=== PATIENT | female | born 1950 | race Caucasian/White ===

== ENCOUNTER → 2016-11-12 | Outpatient (CLI) | payer MEDICARE, BC ==
[~2016-11-12] MED LIST: ALDACTONE 25MG25 M1 PO; APRESOLINE 10MG10 MG PO; APRESOLINE50 MG PO; ASPIRIN E.C. 8181 MG PO; BENADRYL25 M2 PO; CELEXA40 MG PO; COLACE 100100 MG/CAP PO; HCTZ 25MG TAB25 MG PO; LIPITOR 10MG10 MG PO; LIPITOR 40MG TA40 MG PO; LOVENOX 4040 MG/0.4 SQ; NEURONTIN100 MG/CAP PO; NORVASC 10MG10 MG PO; PLAVIX 75MG TAB75 MG PO; PRINIVIL10 MG PO; PROTONIX 40MG T40 MG PO; TOPROL XL 50MG50 MG PO; TOPROL XL100 MG PO; VITAMIN D1000 IU PO; ZESTRIL 20MG TA20 MG PO
== END ==
LOC: MC.RAD 12:55
DX: Z12.31 Encounter for screening mammogram for malignant neoplasm of breast (principal)

== ENCOUNTER 2017-03-17 01:51 | Inpatient (IN) | payer MEDICARE, BC ==
[~2017-03-17] VITALS: Ht 160 cm; Wt 84.1 kg
[~2017-03-17 01:51] MED LIST changes: +VITAMIN D 1001000 IU PO; -VITAMIN D1000 IU PO
[2017-03-17 02:55] LABS: BASO # 0.1 (0.0-0.2); BASO % 0.5 % (0.0-2.0); EOS # 0.2 (0.0-0.7); EOS % 0.9 % (0-4.0); GRAN # 13.4 (1.4-6.5); GRAN % 75.4 % (42.2-75.2); HEMATOCRIT 40.8 % (37.0-47.0); HEMOGLOBIN 13.5 g/dl (12.5-16.0); LYMPH # 2.8 (1.2-3.4); LYMPH % 15.8 % (20.0-51.0); MEAN CELL VOLUME 91 fl (80.0-100.0); MEAN CORPUSCULAR HEMOGLOBIN 30 pg (27.0-31.0); MEAN CORPUSCULAR HGB CONC 33 g/dl (33.0-37.0); MEAN PLATELET VOLUME 9.9 fl (7.4-10.4); MONO # 1.2 (0.1-0.6); MONO % 6.8 % (1.7-9.3); PLATELET COUNT 334 K/mm3 (130-400); RED BLOOD COUNT 4.47 M/mm3 (4.10-5.30); REDCELL DISTRIBUTION WIDTH-CV 13.1 % (11.5-14.5); WHITE BLOOD COUNT 17.8 K/mm3 (4.8-10.8)
[2017-03-17 03:00] LABS: PROTHROMBIN TIME 11.4 SECONDS (9.7-12.8)
[2017-03-17 03:04] LABS: ADJUSTED CALCIUM 9.1 mg/dL (8.4-10.2); ALBUMIN 4.3 gm/dL (3.5-5.0); BILIRUBIN,TOTAL 0.5 mg/dL (0.0-1.0); CALCIUM 9.3 mg/dL (8.4-10.2); CREATININE, serum 0.96 mg/dL (0.52-1.25); POTASSIUM 4.1 mmol/L (3.4-5.0); TOTAL PROTEIN 8.1 gm/dL (6.4-8.2)
[2017-03-17 03:16] LABS: TROPONIN-I 0.015 ng/mL (0.000-0.034)
[2017-03-17 04:31] LABS: PH 5 (5-8); SQUAMOUS EPITHELIAL 0-2 /hpf; URINE APPEARANCE Clear; URINE BACTERIA None Seen /hpf; URINE BILIRUBIN Negative (NEGATIVE); URINE BLOOD Negative (NEGATIVE); URINE COLOR Straw; URINE GLUCOSE Negative (NEGATIVE); URINE KETONE Negative (NEGATIVE); URINE RBC 0-2 /hpf; URINE UROBILINOGEN Negative (NEGATIVE); URINE WBC 0-2 /hpf
[2017-03-17 08:30] VITALS: BP 133/61; PULSE 86; TEMP 98
[2017-03-17 13:03] VITALS: BP 135/67; PULSE 78; TEMP 97.7
[2017-03-17 16:08] VITALS: BP 128/68; PULSE 82; TEMP 98.6
[2017-03-17 20:56] VITALS: BP 135/55; PULSE 77; TEMP 98.7
[2017-03-17 22:25] LABS: BASO # 0.1 (0.0-0.2); BASO % 0.7 % (0.0-2.0); EOS # 0.4 (0.0-0.7); EOS % 3.5 % (0-4.0); GRAN # 5.8 (1.4-6.5); GRAN % 51.5 % (42.2-75.2); LYMPH # 4.1 (1.2-3.4); LYMPH % 36.8 % (20.0-51.0); MEAN CELL VOLUME 93 fl (80.0-100.0); MEAN CORPUSCULAR HGB CONC 33 g/dl (33.0-37.0); MEAN PLATELET VOLUME 10.5 fl (7.4-10.4); MONO # 0.8 (0.1-0.6); MONO % 7.1 % (1.7-9.3); PLATELET COUNT 307 K/mm3 (130-400); RED BLOOD COUNT 3.77 M/mm3 (4.10-5.30); REDCELL DISTRIBUTION WIDTH-CV 13.3 % (11.5-14.5); WHITE BLOOD COUNT 11.2 K/mm3 (4.8-10.8)
[2017-03-17 22:27] LABS: HEMOGLOBIN 11.4 g/dl (12.5-16.0); MEAN CORPUSCULAR HEMOGLOBIN 30 pg (27.0-31.0)
[2017-03-17 22:34] VITALS: BP 148/61; PULSE 77; TEMP 98.4
[2017-03-18 00:12] LABS: ERYTHROCYTE SEDIMENTATION RATE 19 mm/hr (0-30)
[2017-03-18 02:21] VITALS: BP 132/61; PULSE 74; TEMP 97.7
[2017-03-18 08:17] VITALS: BP 151/83; PULSE 90; TEMP 98
[2017-03-18 09:06] LABS: BASO # 0.1 (0.0-0.2); BASO % 0.9 % (0.0-2.0); EOS # 0.4 (0.0-0.7); EOS % 3.7 % (0-4.0); GRAN # 6.3 (1.4-6.5); GRAN % 58.6 % (42.2-75.2); HEMATOCRIT 41.3 % (37.0-47.0); HEMOGLOBIN 13.3 g/dl (12.5-16.0); LYMPH # 3.3 (1.2-3.4); LYMPH % 31.1 % (20.0-51.0); MEAN CELL VOLUME 95 fl (80.0-100.0); MEAN CORPUSCULAR HEMOGLOBIN 30 pg (27.0-31.0); MEAN CORPUSCULAR HGB CONC 32 g/dl (33.0-37.0); MEAN PLATELET VOLUME 9.8 fl (7.4-10.4); MONO # 0.6 (0.1-0.6); MONO % 5.4 % (1.7-9.3); PLATELET COUNT 324 K/mm3 (130-400); RED BLOOD COUNT 4.37 M/mm3 (4.10-5.30); REDCELL DISTRIBUTION WIDTH-CV 13.2 % (11.5-14.5); WHITE BLOOD COUNT 10.7 K/mm3 (4.8-10.8)
[2017-03-18 09:21] LABS: C-REACTIVE PROTEIN 0.6 mg/dL (0.0-0.9); CREATININE, serum 0.86 mg/dL (0.52-1.25); POTASSIUM 3.8 mmol/L (3.4-5.0)
[2017-03-18 11:23] VITALS: BP 128/65; PULSE 89; TEMP 98.3
== END 2017-03-18 13:06 | disposition home health service (06) | DRG 57 ==
LOC: COL.ER 01:51 → MEDICAL 05:42
PROVIDERS: Emergency Medicine; Internal Medicine; Nurse Practitioner Family
DX: I69.354 Hemiplegia and hemiparesis following cerebral infarction affecting left non-dominant side (principal); I69.392 Facial weakness following cerebral infarction; I10 Essential (primary) hypertension; R00.0 Tachycardia, unspecified; H53.462 Homonymous bilateral field defects, left side; G47.33 Obstructive sleep apnea (adult) (pediatric)
CPT/HCPCS: 99223-AI; 99239; A9585; J1650; J2405; J2550; J7030; J7040

== ENCOUNTER 2020-04-20 11:09 | Inpatient (IN) | payer MEDICARE, BC ==
[~2020-04-20] VITALS: Ht 160 cm; Wt 81.2 kg
[~2020-04-20 11:09] MED LIST changes: +ANTI-DIARRHEAL2 MG PO; +CEPHALEXIN500 M1 PO; +CIPRO 500MG TA500 MG PO; +FOSAMAX 70MG TA70 MG PO; +LIORESAL 1010 MG/TAB PO; +NEURONTIN300 MG/CAP PO; +PRINIVIL40 MG PO; +PROBIOTIC ACID1 EAC3 PO; +WELLBUTRIN XL150 MG PO; +ZOFRAN ODT4 MG PO
[2020-04-20 12:00] LABS: ALANINE AMINOTRANSFERASE 20 U/L (4-34); ALBUMIN 4.7 gm/dL (3.5-5.0); ALKALINE PHOSPHATASE 96 U/L (50-136); ANION GAP 13 mmol/L (7-16); AST,SGOT 32 U/L (15-37); BILIRUBIN,TOTAL 1.1 mg/dL (0.0-1.0); BLOOD UREA NITROGEN 14 mg/dL (7-17); C-REACTIVE PROTEIN 3.1 mg/dL (0.0-0.9); CALCIUM 9.8 mg/dL (8.4-10.2); CARBON DIOXIDE 26 mmol/L (22-30); CHLORIDE 99 mmol/L (98-107); CREATININE, serum 0.91 (0.52-1.25); GLUCOSE 164 mg/dL (74-106); LIPASE 73 U/L (23-300); POTASSIUM 4.2 mmol/L (3.4-5.0); SODIUM 138 mmol/L (137-145); TOTAL PROTEIN 9.1 gm/dL (6.4-8.2)
[2020-04-20 12:04] LABS: BASO # 0.1 (0.0-0.2); BASO % 0.4 % (0.0-2.0); GRAN % 84.7 % (42.2-75.2); HEMATOCRIT 44.6 % (37.0-47.0); HEMOGLOBIN 14.6 g/dl (12.5-16.0); LYMPH # 1.9 (1.2-3.4); LYMPH % 8.6 % (20.0-51.0); MEAN CELL VOLUME 92 fl (80.0-100.0); MEAN CORPUSCULAR HEMOGLOBIN 30 pg (27.0-31.0); MEAN CORPUSCULAR HGB CONC 33 g/dl (33.0-37.0); MEAN PLATELET VOLUME 9.8 fl (7.4-10.4); MONO # 1.3 (0.1-0.6); MONO % 5.8 % (1.7-9.3); PLATELET COUNT 422 K/mm3 (130-400); RED BLOOD COUNT 4.84 M/mm3 (4.10-5.30)
[2020-04-20 12:18] LABS: TROPONIN-I < 0.012 ng/mL (0.000-0.035)
[2020-04-20 12:31] LABS: COLLECTION METHOD CATHETER
[2020-04-20 13:00] LABS: MUCOUS Present /lpf; PH 7 (5-8); SQUAMOUS EPITHELIAL 0-2 /hpf; URINE APPEARANCE Clear; URINE BACTERIA Occasional /hpf; URINE BILIRUBIN Negative (NEGATIVE); URINE BLOOD 2+ (NEGATIVE); URINE COLOR Yellow; URINE GLUCOSE Negative (NEGATIVE); URINE KETONE Negative (NEGATIVE); URINE LEUKOCYTE ESTERASE 1+ (NEGATIVE); URINE NITRATE Positive (NEGATIVE); URINE PROTEIN(semi-quant) Negative (NEGATIVE); URINE RBC 0-2 /hpf; URINE UROBILINOGEN Negative (NEGATIVE)
[2020-04-20 17:55] VITALS: BP 90/54; PULSE 83; TEMP 99
[2020-04-20 19:06] VITALS: BP 100/63; PULSE 83; TEMP 98.1
--- NOTE | 2020-04-20 19:56 | NUR ---
patient alert and oriented. unable to ambulate at time of arrival due to weakness. tolerate food this night. denies any pain . NS at 150ml/hr. resting in bed at this time. report given to MAGDA Vasquez
--- NOTE | 2020-04-20 20:00 | NUR ---
Assessment complete. Patient has no complaints of pain. She is alert and oriented, though slightly drowsy. She has left sided weakness but is still able to lift her arms and legs. Her bottom is reddened but blanchable; turning schedule initiated. Call light in reach.
[2020-04-20 23:12] VITALS: BP 90/50; PULSE 77; TEMP 99.3
[2020-04-21] VITALS (7 sets, daily range): BP systolic 95–132; BP diastolic 53–64; PULSE 74–97; TEMP 97.4–99.7
--- NOTE | 2020-04-21 07:39 | NUR ---
TELEMETRY CALLED AND SAID THE PATIENT HAD AN EPISODE OF V.FIB. PATIENT CHECKED, ASYMPTOMATIC. CALLED AND NOTIFIED. PATIENT BACK INTO NORMAL SINUS RHYTHM ON TELE SCREEN. NO ORDERS GIVEN AT THIS TIME.
--- NOTE | 2020-04-21 08:50 | NUR ---
NATALIA REQUESTING TYLENOL FOR LEFT LEG PAIN. PATIENT RUNNING A 99.[address] REEDER NOTIFED. VERBAL ORDER TO DECREASE IV FLUIDS TO 75ML/HR. IVF RATE CHANGED AT THIS TIME WITH ORGAN ASSEMBLER.
[2020-04-21 11:26] LABS: BASO # 0.1 (0.0-0.2); BASO % 0.4 % (0.0-2.0); EOS # 0.2 (0.0-0.7); EOS % 1.1 % (0-4.0); GRAN # 13.9 (1.4-6.5); GRAN % 83.4 % (42.2-75.2); LYMPH # 2.1 (1.2-3.4); LYMPH % 12.7 % (20.0-51.0); MEAN CELL VOLUME 94 fl (80.0-100.0); MEAN CORPUSCULAR HGB CONC 32 g/dl (33.0-37.0); MEAN PLATELET VOLUME 9.6 fl (7.4-10.4); MONO # 0.3 (0.1-0.6); RED BLOOD COUNT 3.89 M/mm3 (4.10-5.30); REDCELL DISTRIBUTION WIDTH-CV 13.7 % (11.5-14.5)
--- NOTE | 2020-04-21 11:27 | NUR ---
BUBBA met with the patient to discuss discharge plan. The patient lives alone in [place]. She receives 14/01 private duty caregivers from [facility] out of [place]. She reports needing assistance with ADLs and has a walker. She states that [facility] helps her with her ADLs and anything that she needs. The patient's PCP is Dr. Francia Henry and she receives her medications at [facility]. She reports no difficulties obtaining her meds. The patient's DPOA-HC is in EMR and it designates her sister, Mimi Champagne (ph#[phone]), and brother, Minh Boucher (ph#[phone]). The patient plans to return home and resume her services from [facility] upon discharge. BUBBA contacted and faxed updates to Joyce at [facility]. Joyce confirmed services. BUBBA then contacted and reviewed the above information with the patient's sister, Mimi. Mimi is in [place] right now and will be coming back to [place] on Saturday. Mimi confirmed the above information. She is in agreement with the patient returning back home with services from [facility]. She states that her and [facility] will just need a heads up on when she is discharging, to get services resumed and for transportation back home. Mimi states that if she discharges after Saturday she can provide transportation, otherwise a friend or [facility] will provide transport. SW to continue to follow.
[2020-04-21 11:30] LABS: HEMATOCRIT 36.4 % (37.0-47.0); HEMOGLOBIN 11.7 g/dl (12.5-16.0); MEAN CORPUSCULAR HEMOGLOBIN 30 pg (27.0-31.0); PLATELET COUNT 301 K/mm3 (130-400)
[2020-04-21 11:34] LABS: CREATININE, serum 1.49 (0.52-1.25); POTASSIUM 3.9 mmol/L (3.4-5.0)
--- NOTE | 2020-04-21 18:20 | NUR ---
PATIENT GIVEN PRN IV ZOFRAN FOR N/V AT THIS TIME. WILL CONTINUE TO MONITOR. PATIENT HAD INCONTINENT VOID. LINENS AND GOWN CHANGED AT THIS TIME. SEE PATIENT SHIFT ASSESSMENT. WILL REPORT OFF TO ONCOMING NURSE.
--- NOTE | 2020-04-21 19:45 | NUR ---
Report received from MAGDA Arevalo. Pt lying in bed holding bucket, small amount of clear emesis in basin. Pt reports no nausea relief from last dose of Zofran at 1820. Called Oralia RIVERO and updated of situation. IV Phenergan ordered.
--- NOTE | 2020-04-21 20:40 | NUR ---
Shift assessment complete. Pt still vomiting small amounts of clear emesis. IV phenergan administered as ordered, pt reports relief from nausea. Lungs clear to auscultatin, heart rate and rhythm regular, A&Ox4. Denies pain. Refuses PureWick. NS running at 100 ml/hr to right forearm IV with Zosyn running concurrently at 25 ml/hr. Denies other needs at this time. Call light in reach.
[2020-04-22 04:10] VITALS: BP 120/70; PULSE 101; TEMP 99.3
[2020-04-22 06:56] LABS: BASO # 0.1 (0.0-0.2); BASO % 0.6 % (0.0-2.0); EOS # 0.5 (0.0-0.7); EOS % 4.4 % (0-4.0); GRAN # 9.1 (1.4-6.5); GRAN % 76.2 % (42.2-75.2); HEMOGLOBIN 11.7 g/dl (12.5-16.0); LYMPH # 1.6 (1.2-3.4); LYMPH % 13.5 % (20.0-51.0); MEAN CELL VOLUME 93 fl (80.0-100.0); MEAN CORPUSCULAR HEMOGLOBIN 30 pg (27.0-31.0); MEAN CORPUSCULAR HGB CONC 32 g/dl (33.0-37.0); MEAN PLATELET VOLUME 10.2 fl (7.4-10.4); MONO # 0.6 (0.1-0.6); MONO % 4.8 % (1.7-9.3); PLATELET COUNT 281 K/mm3 (130-400); RED BLOOD COUNT 3.91 M/mm3 (4.10-5.30); REDCELL DISTRIBUTION WIDTH-CV 13.4 % (11.5-14.5)
[2020-04-22 06:59] LABS: HEMATOCRIT 36.4 % (37.0-47.0)
[2020-04-22 07:15] LABS: CREATININE, serum 1.1 (0.52-1.25); POTASSIUM 3.6 mmol/L (3.4-5.0)
--- NOTE | 2020-04-22 07:45 | NUR ---
Occasional nausea and vomiting episodes throughout night. Relieved by IV phenergan and zofran, each administered x1 over night. Resting in bed at this time.
[2020-04-22 08:06] VITALS: BP 130/81; PULSE 93; TEMP 98.1
--- NOTE | 2020-04-22 09:38 | NUR ---
PER STUDENT. PT IS REQUESTING TO HAVE MEDICATIONS LATER AFTER NAUSEA HAS SUBSIDED.
[2020-04-22 11:14] VITALS: BP 124/75; PULSE 99; TEMP 98.2
--- NOTE | 2020-04-22 13:47 | NUR ---
Primary nurse was assisted with [id number] patient care by [employer] student Sirena Dobson and [employer] instructor Mami Nielson RN-.
--- NOTE | 2020-04-22 15:19 | NUR ---
PT approached SW to inform that the patient is a two assist and that they are recommending SNF for the patient. SW met with the patient to discuss PT's recommendation. The patient reports that she has been to SNF in the past at [facility] and does not want to do rehab again. She states that she wants to return home with her private duty caregivers. She states that she will just figure out how to do things once she gets home. She states that she would be agreeable to home health though. SW provided her with [employer]'s list of home health agencies that serve [place]. SW attempted to contact the patient's sister, Mimi. SW left her a voicemail. BUBBA then contacted and updated Nirmal at [facility] on PT's eval and recommendation. Nirmal states that they are able to provide one assist for anything the patient needs. If needing more, then they would need to look at bringing the patient's family in. He states that he will also contact family and collaborate with them. BUBBA then received a phone call from the patient's friend, Cesia (ph#[phone]). Cesia states that she is also the patient's DPOA-HC. BUBBA followed up with the patient. She gave SW permission to talk to and give Cesia her patient pin number. Cesia states that she received a phone call from Nirmal at [facility]. She states that there is an updated DPOA-HC and that she is also on it. She states that she can email it to BUBBA. BUBBA provided her with this BUBBA's email. BUBBA updated Cesia on PT's eval and recommendation. Cesia reports that she would be agreeable to rehab for the patient. She discussed the different post-acute rehab options. Cesia states that she will talk to the patient about rehab and the options and will contact BUBBA back. She states that the patient's sister, Mimi, is traveling back from [place] today. SW to continue to follow.
[2020-04-22 16:39] VITALS: BP 135/73; PULSE 107; TEMP 98.1
--- NOTE | 2020-04-22 19:05 | NUR ---
Report received from MAGDA Gee. Pt brought back to room [address] in bed, denies needs at this time. Will continue to monitor.
--- NOTE | 2020-04-22 19:13 | NUR ---
PT HAD A RATHER UNEVENTFUL DAY. STILL COMPLAINED OF NAUSEA AND DRY HEAVES ALL DAY. GAVE ZOFRAN, PHENERGAN AND STILL NO IMPROVEMENT. PT DID TRY SPRITE AND SALTINES, BUT DID NOT WANT TO CONTINUE EATING DUE TO THE DRY HEAVES. AT DINNER PT WAS OFFERED CHICKEN NOODLE SOUP WELL SOME CHICKEN BROTH TO TRY, AND AFTER TWO SIPS, SHE STATES SHE JUST CANNOT EAT THEM. PT HAS CONTINUED TO USE THE BED BRAR, AND CALLS APPRORIATELY. SHE DOES NOT GET OUT OF BED. REPORT GIVEN TO MAGDA VASQUEZ. PT ALSO JUST RETURNED FROM CT SCAN.
--- NOTE | 2020-04-22 19:30 | NUR ---
Shift assessment complete. Pt sitting up in bed dry heaving over bucket. Compazine administered with partial relief. Left sided weakness noted, pt reports baseline. Unable to lift left leg, moves LUE with limited ROM. Zosyn currently infusing at 25 ml/hr along with NS at 100 ml/hr. Pt incontinent of urine at this time. Used bedpan and urinated more. Brief and bedpad changed. Lungs clear to auscultation, heart rhythm regular, rate elevated, A&Ox4. Denies other needs at this time. Call light in reach.
[2020-04-22 20:00] VITALS: BP 133/81; PULSE 108; TEMP 98.1
[2020-04-22 22:55] LABS: ALBUMIN 3.9 gm/dL (3.5-5.0); TOTAL PROTEIN 7.7 gm/dL (6.4-8.2)
[2020-04-22 23:15] LABS: BILIRUBIN UNCONJUGATED 0.6 mg/dL (0.0-1.1); BILIRUBIN,DIRECT 0.2 mg/dL (0.0-0.4); BILIRUBIN,TOTAL 0.8 mg/dL (0.0-1.0)
[2020-04-23] VITALS (7 sets, daily range): BP systolic 120–152; BP diastolic 62–89; PULSE 93–111; TEMP 97.4–99
[2020-04-23 06:43] LABS: BASO # 0.1 (0.0-0.2); BASO % 1.1 % (0.0-2.0); EOS # 0.2 (0.0-0.7); EOS % 2.1 % (0-4.0); GRAN # 6.8 (1.4-6.5); GRAN % 72.2 % (42.2-75.2); HEMATOCRIT 39.2 % (37.0-47.0); HEMOGLOBIN 12.8 g/dl (12.5-16.0); LYMPH # 1.6 (1.2-3.4); LYMPH % 17.1 % (20.0-51.0); MEAN CELL VOLUME 91 fl (80.0-100.0); MEAN CORPUSCULAR HEMOGLOBIN 30 pg (27.0-31.0); MEAN CORPUSCULAR HGB CONC 33 g/dl (33.0-37.0); MONO # 0.7 (0.1-0.6); PLATELET COUNT 317 K/mm3 (130-400); RED BLOOD COUNT 4.32 M/mm3 (4.10-5.30); REDCELL DISTRIBUTION WIDTH-CV 13.1 % (11.5-14.5)
--- NOTE | 2020-04-23 06:43 | NUR ---
Pt slept on and off through night. Incontinent of urine and scant amounts of stool several times. No reports of nausea since early last night. No episodes of vomiting.
[2020-04-23 06:49] LABS: ALBUMIN 3.8 gm/dL (3.5-5.0); BILIRUBIN,TOTAL 0.8 mg/dL (0.0-1.0); CALCIUM 8.6 mg/dL (8.4-10.2); CREATININE, serum 0.81 (0.52-1.25); POTASSIUM 3.4 mmol/L (3.4-5.0); TOTAL PROTEIN 7.6 gm/dL (6.4-8.2)
--- NOTE | 2020-04-23 08:06 | NUR ---
PT REPORTS NAUSEA AND PAIN IN L LEG 08/31, PT WANTS TO TRY ZOFRAN, PT ORIGINALLY OPPOSED TO PUREWICC AND AGREED TO TRY IT. PUREWICC WORKING WELL OF RIGHT NOW. PT AOX4, PT CANNOT MOVE L LEG ON HER OWN, FIELD COORDINATOR EQUAL, ASSESSMENT PERFORMED. PT NPO AT THIS TIME. IV SITE CDI W/ NO ERYTHEMA.
--- NOTE | 2020-04-23 16:07 | NUR ---
PT REQUESTING EYE DROPS, DIANA SMITH VERBALIZED AGREEMENT TO THIS.
--- NOTE | 2020-04-23 17:30 | NUR ---
PT AOX4, EYE DROPS GIVEN, ANTIBIOTICS HUNG, PT'S SISTER UPDATED. PT VITALS STABLE, PT DENIES PAIN BUT REPORTS NAUSEA. PT HAS HAD NO VOMITING TODAY, X1 LOOSE STOOL THIS MORNING. PT UTILIZING PUREWICC AND IT HAS BEEN DRAINING WELL. PT IV SITE CHANGED TO LFA. NO OTHER NEEDS AT THIS TIME.
--- NOTE | 2020-04-23 21:45 | NUR ---
PT IN BED WITH HOB AT 60 DEGREE ANGLE, A/O X3, DENIES PAIN OR DISCOMFORT. ALL NEEDS MET AT THIS TIME. CALL LIGHT WITHIN REACH.
[2020-04-24 04:00] VITALS: BP 139/82; PULSE 91; TEMP 98.4
[2020-04-24 06:58] LABS: BASO # 0.1 (0.0-0.2); BASO % 0.9 % (0.0-2.0); EOS # 0.2 (0.0-0.7); GRAN # 6.9 (1.4-6.5); GRAN % 66.4 % (42.2-75.2); HEMATOCRIT 40.2 % (37.0-47.0); HEMOGLOBIN 13.2 g/dl (12.5-16.0); LYMPH # 2.4 (1.2-3.4); LYMPH % 23.5 % (20.0-51.0); MEAN CELL VOLUME 90 fl (80.0-100.0); MEAN CORPUSCULAR HEMOGLOBIN 30 pg (27.0-31.0); MEAN CORPUSCULAR HGB CONC 33 g/dl (33.0-37.0); MEAN PLATELET VOLUME 9.9 fl (7.4-10.4); MONO # 0.7 (0.1-0.6); MONO % 6.7 % (1.7-9.3); PLATELET COUNT 372 K/mm3 (130-400); RED BLOOD COUNT 4.46 M/mm3 (4.10-5.30); REDCELL DISTRIBUTION WIDTH-CV 13.1 % (11.5-14.5)
--- NOTE | 2020-04-24 07:14 | NUR ---
PT HAD NO ISSUES OR CHANGES DURING THIS SHIFT. PT HAD NO C/O PAIN OR DISCOMFORT. PT HAS CALL LIGHT WITHIN REACH.
[2020-04-24 08:56] VITALS: BP 156/73; PULSE 101; TEMP 98.4
--- NOTE | 2020-04-24 09:00 | NUR ---
PT PLEASANT, AOX4, REPORTS MILD NAUSEA WITHOUT VOMITING, PT INCONTINENT OF URINE, PERICARE PERFORMED, NEW PUREWICC PLACED, PT REPOSITIONED ON R SIDE. HEELS FLOATED, ASSESSMENT PERFORMED, VITALS TAKEN, MEDICATIONS GIVEN, PT REFUSED BREAKFAST, REQUESTED SPRITE WITH ICE. SPRITE GIVEN. NO OTHER NEEDS AT THIS TIME.
[2020-04-24 09:45] LABS: ALBUMIN 3.7 gm/dL (3.5-5.0); BILIRUBIN,TOTAL 0.8 mg/dL (0.0-1.0); CALCIUM 8.8 mg/dL (8.4-10.2); CREATININE, serum 0.79 (0.52-1.25); POTASSIUM 3.2 mmol/L (3.4-5.0); TOTAL PROTEIN 7.3 gm/dL (6.4-8.2)
[2020-04-24] MEDS ORDERED: CELEXA40 MG PO (09:54)
[2020-04-24 11:13] VITALS: BP 128/68; PULSE 92; TEMP 98.2
--- NOTE | 2020-04-24 11:44 | NUR ---
PT SISTER UPDATED, PT FRIEND SAMANTHA UPDATED.
--- NOTE | 2020-04-24 15:01 | NUR ---
TELEMETRY REPORTED A FEW SECOND RUN OF AN IRREGULAR RHYTHM WITH HIGH HR. SARAH ORTIZ NOTIFIED.
[2020-04-24 17:08] VITALS: BP 132/69; PULSE 95; TEMP 98.3
--- NOTE | 2020-04-24 17:18 | NUR ---
PT AOX4, PT DENYING PAIN BUT REPORTING NAUSEA. NO VOMITING OR DRY HEAVING. PT HAD BM TODAY. PUREWICC INTACT. IV FLUIDS DC'D, ZOSYN RUNNING OVER 4 HOURS. ALL MEDS GIVEN, VITALS STABLE, IV INTACT, NO OTHER NEEDS AT THIS TIME.
[2020-04-24 19:00] VITALS: BP 132/74; PULSE 92; TEMP 98.4
--- NOTE | 2020-04-24 20:00 | NUR ---
Assessment complete. Patient complains of mild nausea and requests IV zofran which is administered. She has no complaints of pain but is readjusted in bed to promote comfort. Her bottom is reddened but blanchable and turning schedule is implemented. Patient is alert and oriented. Call light in reach, bed alarm on.
[2020-04-25] VITALS (7 sets, daily range): BP systolic 124–142; BP diastolic 56–83; PULSE 68–88; TEMP 97.9–98.7
--- NOTE | 2020-04-25 06:21 | NUR ---
Patient has had an uneventful night. Purewick external catheter is draining yellow, clear urine. Patient complained of nausea once and PRN zofran was administered. No complaints of pain. Turning schedule was utilized to prevent excess pressure. No new concerns.
--- NOTE | 2020-04-25 07:58 | NUR ---
Assessment complete. PAtient laying in bed, awake and alert at this time. no complaints of pain or discomfort. IV site is CD&I. Patient refused breakfast this morning, requested just a sprite instead. Potassium will be replaced per protocol. Will continue to monitor. Call light is in reach.
--- NOTE | 2020-04-25 10:57 | NUR ---
Initial visit; Patient thanked Visual Merchandising Manager for looking in on her and offering encouragement, blessings and prayer. Visual Merchandising Manager will continue to follow up while Katie is a patient.
--- NOTE | 2020-04-25 14:04 | NUR ---
BUBBA met with the patient to follow up on preference for SNF. The patient states that she would be agreeable to post-acute rehab. SW informed her of the different post-acute rehab. The patient states that she would like to stay in the hospital and chose 1)[facility] 2) [facility]. BUBBA consulted [facility] Director, Jen. BUBBA contacted and faxed a referral to both swing beds. BUBBA then contacted and updated the patient's sister, Mimi. Mimi is agreeable is agreeable to post-acute rehab for the patient. She was supportive of the patient's preferences. Mimi would like an update from the clinical team on the patient's tentative surgery. BUBBA notified SARAH Carbajal. BUBBA awaiting screens.
--- NOTE | 2020-04-25 18:13 | NUR ---
Patient has had an uneventful day. She was repositioned multiple timesin order to keep direct pressure off her bottom. She has had no complaints of pain or discomfort through out the day. Minimal needs were requested. Purewick remains in place at this time. Pt did not want what was provided for dinner and requested soup. This was provided for her. No other needs were expressed, call light is in reach.
--- NOTE | 2020-04-25 18:40 | NUR ---
Report received from MAGDA Doran. Pt resting in bed. Placed on bedpan. Call light in reach and told to call when finished.
--- NOTE | 2020-04-25 23:00 | NUR ---
Received pt from MAGDA Maier around 2300. Pt assessment completed and charted, roomair. Pt was sleeping when this nurse went for a bedside handover. Pt is settled on her bed, call light on reach, bed alarm is on. Provided warm blankets on pt request. No further needs at this time.
[2020-04-26 03:35] VITALS: BP 126/64; PULSE 71; TEMP 98.5
--- NOTE | 2020-04-26 05:54 | NUR ---
Pt had an uneventful night, slept through out the night. Morning meds provided. No further needs at this time.
[2020-04-26 06:41] LABS: BASO # 0.1 (0.0-0.2); BASO % 0.7 % (0.0-2.0); EOS # 0.4 (0.0-0.7); EOS % 3.2 % (0-4.0); GRAN # 7.4 (1.4-6.5); HEMOGLOBIN 12.1 g/dl (12.5-16.0); LYMPH # 2.9 (1.2-3.4); MEAN CELL VOLUME 91 fl (80.0-100.0); MEAN CORPUSCULAR HEMOGLOBIN 30 pg (27.0-31.0); MEAN CORPUSCULAR HGB CONC 33 g/dl (33.0-37.0); MEAN PLATELET VOLUME 9.7 fl (7.4-10.4); MONO # 0.9 (0.1-0.6); MONO % 7.8 % (1.7-9.3); PLATELET COUNT 358 K/mm3 (130-400); RED BLOOD COUNT 4.04 M/mm3 (4.10-5.30); REDCELL DISTRIBUTION WIDTH-CV 13.1 % (11.5-14.5)
[2020-04-26 06:42] LABS: HEMATOCRIT 36.6 % (37.0-47.0)
[2020-04-26 07:19] LABS: POTASSIUM 3.6 mmol/L (3.4-5.0)
[2020-04-26 07:27] LABS: ALBUMIN 3.6 gm/dL (3.5-5.0); BILIRUBIN,TOTAL 0.9 mg/dL (0.0-1.0); CALCIUM 9.2 mg/dL (8.4-10.2); CREATININE, serum 0.96 (0.52-1.25)
[2020-04-26 07:50] VITALS: BP 153/59; PULSE 80; TEMP 97.8
--- NOTE | 2020-04-26 08:50 | NUR ---
PT PLEASANT, AOX4, PT HAD BM IN AM, PT TOOK PILLS, ZOSYN HANGING, PT DENIES PAIN, REPORTS SOME NAUSEA, ATE OATMEAL FOR BREAKFAST, VITALS REVIEWED, MEDS GIVEN, ASSESSMENT PERFORMED, NO OTHER NEEDS.
--- NOTE | 2020-04-26 11:40 | NUR ---
The patient is to tentatively has surgery on Saturday to remove her gallbladder. BUBBA notified Bettie at [facility]. BUBBA notified Bettie at [facility]. Bettie reports that she did not get the referral yesterday. BUBBA refaxed the referral to [facility]. BUBBA awaiting screens. [facility]: #[phone] fax#[phone]
[2020-04-26 12:52] VITALS: BP 111/55; PULSE 71; TEMP 98.2
[2020-04-26 16:03] VITALS: BP 129/72; PULSE 70; TEMP 98.3
--- NOTE | 2020-04-26 16:16 | NUR ---
Bettie, at [facility], reports that they are able to accept the patient on , as long as she is stable after her surgery. SW to inform the patient and her sister.
--- NOTE | 2020-04-26 18:37 | NUR ---
UNEVENTFUL SHIFT, CONSENT ON CHART, PT PLEASANT, AOX4, PT DID NOT REPORT NAUSEA AT THIS TIME, IV ZOSYN HANGING. NO OTHER NEEDS.
[2020-04-26 20:00] VITALS: BP 121/56; PULSE 72; TEMP 98.3
--- NOTE | 2020-04-26 20:00 | NUR ---
Assessment complete. Patient has no complaints of pain or nausea at this time. No edema is noted. Patient appears sad, and when asked what's wrong, she states "I just hope this surgery makes me feel better tomorrow". Sprite and saltine crackers provided. Patient is repositioned for comfort. Call light within reach. Will continue to monitor.
[2020-04-27] VITALS (10 sets, daily range): BP systolic 107–150; BP diastolic 54–79; PULSE 69–88; TEMP 97.9–98.8
[2020-04-27 06:26] LABS: BASO # 0.1 (0.0-0.2); BASO % 0.8 % (0.0-2.0); EOS # 0.4 (0.0-0.7); EOS % 2.9 % (0-4.0); GRAN # 8.2 (1.4-6.5); GRAN % 66.8 % (42.2-75.2); HEMATOCRIT 38.3 % (37.0-47.0); HEMOGLOBIN 12.4 g/dl (12.5-16.0); LYMPH # 2.7 (1.2-3.4); LYMPH % 22.3 % (20.0-51.0); MEAN CELL VOLUME 90 fl (80.0-100.0); MEAN CORPUSCULAR HEMOGLOBIN 29 pg (27.0-31.0); MEAN CORPUSCULAR HGB CONC 32 g/dl (33.0-37.0); MONO # 0.8 (0.1-0.6); MONO % 6.7 % (1.7-9.3); PLATELET COUNT 382 K/mm3 (130-400); RED BLOOD COUNT 4.25 M/mm3 (4.10-5.30); REDCELL DISTRIBUTION WIDTH-CV 12.9 % (11.5-14.5)
[2020-04-27 06:41] LABS: CALCIUM 9.3 mg/dL (8.4-10.2); CREATININE, serum 0.93 (0.52-1.25); POTASSIUM 3.4 mmol/L (3.4-5.0)
--- NOTE | 2020-04-27 09:26 | NUR ---
CALLED ANESTHESIA FOR FLUID ORDERS, STATED IT WAS FINE TO CHANGE FROM LR TO NS FOR ZOSYN COMPATIBILITIY.
--- NOTE | 2020-04-27 09:40 | NUR ---
PT PLEASANT, AOX4, PUREWICC SUCTION CONTAINER CHANGED, PATRICIO CARE PROVIDED, LINENS CHANGED, GOWN CHANGED, PUREWICC CHANGED, VITALS REVIEWED, MEDICATIONS GIVEN, PT DENIES NAUSEA, DENIES PAIN/DISCOMFORT, IV SITE W/O ERYTHEMA OR DRAINAGE. NO OTHER NEEDS AT THIS TIME.
--- NOTE | 2020-04-27 10:09 | NUR ---
Follow-up visit; Patient is preparing herself for her surgical procedure today. She states she is ready for it to be over with. Katie was receptive to [employer] offering encouragement and prayer. [employer] will follow up.
--- NOTE | 2020-04-27 10:15 | NUR ---
BUBBA received a phone call from the patient's sister, Mimi, and friend, Cesia. They both wanted and update on the patient's surgery scheduled today. SW to notify the patient's RN. BUBBA updated Mimi and Cesia on [facility] acceptance. Mimi and Cesia both report they would prefer [facility] over [facility], if [facility] cannot take. Cesia reports that she will try and email the updated DPOA-HC to BUBBA today. SW to continue to follow.
--- NOTE | 2020-04-27 10:31 | NUR ---
SW received the patient's updated DPOA-HC, via email. SW placed the document in the patient's chart. The patient's DPOA-HC is her friend, Parag Klein. The alternate is her sister, Mimi. SW notified the patient's RN of this.
--- NOTE | 2020-04-27 10:44 | NUR ---
PT TAKEN DOWN FOR PROCEDURE VIA BED.
--- NOTE | 2020-04-27 13:40 | NUR ---
PT RETURNED FROM SURGERY, SITES ARE CDI W/ NO DRESSINGS. PT DENIES PAIN OR DISCOMFORT, APPEARS DROWSY, ON 2L OXYGEN, PT NOT TAKING DEEP BREATHS. VITALS TAKEN.
--- NOTE | 2020-04-27 14:23 | NUR ---
WHEN PROMPTED TO TAKE DEEP BREATHS PT WOULD COUGH.
--- NOTE | 2020-04-27 14:57 | NUR ---
Bettie, at [facility], reports that they have tentatively accepted the patient. She states that she just needs to check with the doctor applications chemist tomorrow and will touch base with SW tomorrow morning. SW to inform the patient and her family.
--- NOTE | 2020-04-27 17:22 | NUR ---
LAP CHOLEY PERFORMED TODAY, COVID SWABBED NEEDS TO BE OBTAINED FOR SNF PLACEMENT, PT AOX4, ON RA, VITALS STABLE, PT SEEMS MORE SAD THAN NORMAL TODAY, PT DENIES PAIN AT [facility] OR ANYWHERE ELSE, NO NAUSEA DURING SHIFT, NO OTHER NEEDS.
--- NOTE | 2020-04-27 20:00 | NUR ---
Assessment complete. Patient has no complaints of pain or nausea at this time. Lap sites x4 on lower abdomen are ROSALIE with no drainage, swelling or redness. Bowel sounds are present but hypoactive. Left forearm INT is flushed and it is leaking; New INT site initiated in left upper arm. Purewick catheter is draining clear, yellow urine. Will continue to monitor.
[2020-04-28] VITALS (7 sets, daily range): BP systolic 103–120; BP diastolic 51–60; PULSE 67–106; TEMP 97.9–98.3
[2020-04-28 07:09] LABS: HEMOGLOBIN 11.5 g/dl (12.5-16.0); MEAN CELL VOLUME 91 fl (80.0-100.0); MEAN CORPUSCULAR HEMOGLOBIN 30 pg (27.0-31.0); MEAN CORPUSCULAR HGB CONC 33 g/dl (33.0-37.0); MEAN PLATELET VOLUME 10.2 fl (7.4-10.4); PLATELET COUNT 384 K/mm3 (130-400); RED BLOOD COUNT 3.81 M/mm3 (4.10-5.30); REDCELL DISTRIBUTION WIDTH-CV 12.9 % (11.5-14.5)
[2020-04-28 07:20] LABS: HEMATOCRIT 34.7 % (37.0-47.0)
[2020-04-28 07:28] LABS: ALBUMIN 3.5 gm/dL (3.5-5.0); BILIRUBIN,TOTAL 0.6 mg/dL (0.0-1.0); CALCIUM 9.2 mg/dL (8.4-10.2); CREATININE, serum 0.83 (0.52-1.25); POTASSIUM 4.2 mmol/L (3.4-5.0); TOTAL PROTEIN 6.9 gm/dL (6.4-8.2)
[2020-04-28 07:38] LABS: BAND 2 % (0-10); LYMPHOCYTE 4 % (20.0-51.0); NEUTROPHILS 89 % (42.0-75.2); PLATELET ESTIMATE NORMAL (NORMAL)
--- NOTE | 2020-04-28 09:39 | NUR ---
The patient may be able to d/c tomorrow, depending on WBC. Jen, [facility] Director, reports that they unable to accept the patient. BUBBA met with the patient to update. The patient states that she would prefer [facility]. BUBBA attempted to contact and update Bettie at [facility] and Bettie at [facility]. BUBBA left them voicemails. BUBBA contacted and updated the patient's friend/DPOA-HC, Parag. Parag is in agreement to the plan. She states that her son is a SVP MARKET[employer] and would be able to provide transportation for the patient. He gets off of work tomorrow around 1200. SW to continue to follow.
--- NOTE | 2020-04-28 13:23 | NUR ---
SW received a phone call from the patient's sister, Mimi. SW provided her with an update. Mimi sounded upset that [facility] cannot accept, but is agreeable with the patient going to [facility].
--- NOTE | 2020-04-28 13:28 | NUR ---
Primary nurse was assisted with [id number] patient care by [employer] student Meenu Castellanos and [employer] instructor Mami Nielson RN-.
--- NOTE | 2020-04-28 15:18 | NUR ---
Follow-up visit; Patient states she is feeling better and thanked canary raiser for looking in on her and continuing to keep her in Strike Warfare/Missile Systems Officer's prayers.
--- NOTE | 2020-04-28 17:25 | NUR ---
Patient resting in bedside recliner at this time. Patient is alert and oriented, answers questions appropriately. Patient has had no complaints of nausea or pain, patient remains afebrile. Lap sites to ABD are well approximated, no indications of redness or drainage noted. No needs at this time, call light within reach.
--- NOTE | 2020-04-28 20:35 | NUR ---
Patient assessed at this time. Alert and oriented x 4, and able to make needs known. Denies having pain and discomfort at this time. Peripheral INT to left AC. Site without redness, warmth, swelling, and pain. Denies having SOB and dyspnea. LS CTA in upper lobes, diminished in lower. Respirations even and unlabored. HRR. Telemetry: normal sinus. Capillary refill less than 3 seconds. Non-tenting skin turgor. BSAx4. Abdomen soft and non-tender. Lap sites x 4 open to air, and well approximated. Sites without redness, warmth, swelling, drainage, and pain. No edema. Redness to bottom, blanchable. Sitting in recliner, not wanting to lay in bed at this time. Voices no questions, needs, or concerns at this time. Resting in recliner with call light within reach.
[2020-04-29 04:17] VITALS: BP 108/47; PULSE 64; TEMP 97.9
--- NOTE | 2020-04-29 05:56 | NUR ---
Patient has been resting in recliner this shift. Purewick changed, and was also incontinent. Perineal hygiene care provided. Lab sites to abdomen open to air and are without redness, warmth, swelling, pain, and drainage. Voices no questions, needs, or concerns at this time. Resting in recliner with call light within reach.
[2020-04-29 07:08] LABS: HEMOGLOBIN 11.7 g/dl (12.5-16.0); MEAN CELL VOLUME 92 fl (80.0-100.0); MEAN CORPUSCULAR HEMOGLOBIN 30 pg (27.0-31.0); MEAN CORPUSCULAR HGB CONC 33 g/dl (33.0-37.0); MEAN PLATELET VOLUME 10.1 fl (7.4-10.4); PLATELET COUNT 387 K/mm3 (130-400); RED BLOOD COUNT 3.91 M/mm3 (4.10-5.30); REDCELL DISTRIBUTION WIDTH-CV 13.6 % (11.5-14.5)
[2020-04-29 07:13] LABS: CALCIUM 9.2 mg/dL (8.4-10.2); CREATININE, serum 0.9 (0.52-1.25); POTASSIUM 3.4 mmol/L (3.4-5.0)
[2020-04-29 07:39] VITALS: BP 122/67; PULSE 66; TEMP 97.9
[2020-04-29 08:14] LABS: BAND 4 % (0-10); LYMPHOCYTE 15 % (20.0-51.0); NEUTROPHILS 77 % (42.0-75.2); PLATELET ESTIMATE NORMAL (NORMAL)
[2020-04-29 08:56] LABS: ALBUMIN 3.5 gm/dL (3.5-5.0); BILIRUBIN UNCONJUGATED 0.7 mg/dL (0.0-1.1); BILIRUBIN,DIRECT 0.1 mg/dL (0.0-0.4); BILIRUBIN,TOTAL 0.8 mg/dL (0.0-1.0); TOTAL PROTEIN 6.9 gm/dL (6.4-8.2)
--- NOTE | 2020-04-29 09:43 | NUR ---
Follow-up visit; Patient thanked Pyroglazer for continuing to look in on her and offering prayer. Pyroglazer wished patient rapid and thorough healing.
[2020-04-29] MEDS ORDERED: AMOXICILLIN 8751 TAB PO (11:10)
--- NOTE | 2020-04-29 11:58 | NUR ---
BUBBA attended clinical rounds. The hospitalist would be ready to d/c the patient. SW followed up with the patient. The patient is in agreement to going to [facility]. SW presented and read the IM form outloud to the patient. The patient verbalized understanding and gave BUBBA approval to sign the form on her behalf. BUBBA provided her with a copy. BUBBA notified Oliva at [facility]. Oliva states that their provider, Naz, would like a ggrowuky-vm-gdenecot call. BUBBA notified SARAH Carbajal.
[2020-04-29 12:00] VITALS: BP 110/56; PULSE 65; TEMP 98
--- NOTE | 2020-04-29 13:37 | NUR ---
The [id number] was done. [facility] is able to accept the patient, but would like her COVID results. It is undetermined when the results will be back. A rapid test is unable to be done. BUBBA informed [facility] of this. Oliva, at [facility], reports that they are able to go ahead accept the patient today, with the results pending. BUBBA notified the clinical team and the patient's RN. BUBBA updated the patient and her friend/DPOA-HC, Parag. BUBBA attempted to contact and update the patient's sister, Mimi. BUBBA left her a message. The patient is to discharge today, 04/29, to [facility]. Transportation to be by private vehicle, via Parag's son at 1430. BUBBA notified the patient, her RN, and Oliva at [facility] of the time. They were all agreeable to the time. No additional needs at this time.
[2020-04-29 13:38] VITALS: BP 110/56; PULSE 65; TEMP 98
--- NOTE | 2020-04-29 14:14 | NUR ---
Primary nurse was assisted with [phone] patient care by [employer] student Meenu Castellanos and [employer] instructor Mami Nielson RN-.
--- NOTE | 2020-04-29 15:44 | NUR ---
PAtient left the floor. Packet sent for transport. No other questions or concerns.
== END 2020-04-29 15:45 | disposition swing bed (61) | DRG 854 ==
LOC: COL.ER 11:09 → MEDICAL 13:42
PROVIDERS: Emergency Medicine; Internal Medicine; Physician Assistant; Surgery; ADMIT Student in an Organized Health Care Education/Training Program
PROC: 8E0W4CZ Robotic Assisted Procedure of Trunk Region, Percutaneous Endoscopic Approach (ICD-10-PCS; 2020-04-27)
PROC: 0FT44ZZ Resection of Gallbladder, Percutaneous Endoscopic Approach (ICD-10-PCS; principal; 2020-04-27 11:00)
DX: A41.9 Sepsis, unspecified organism (principal); K81.0 Acute cholecystitis; N17.9 Acute kidney failure, unspecified; K21.9 Gastro-esophageal reflux disease without esophagitis; E03.9 Hypothyroidism, unspecified; E78.5 Hyperlipidemia, unspecified; M81.0 Age-related osteoporosis without current pathological fracture; Z90.710 Acquired absence of both cervix and uterus; G47.33 Obstructive sleep apnea (adult) (pediatric); F32.9 Major depressive disorder, single episode, unspecified; R73.9 Hyperglycemia, unspecified; R65.20 Severe sepsis without septic shock; E87.6 Hypokalemia; Z86.73 Personal history of transient ischemic attack (TIA), and cerebral infarction without residual deficits; G89.29 Other chronic pain; G62.9 Polyneuropathy, unspecified; M19.90 Unspecified osteoarthritis, unspecified site; Z79.82 Long term (current) use of aspirin
CPT/HCPCS: 99223-AI; 99232-AI; 99233-AI; 99239; J0690; J0780; J1100; J1644; J1885; J2370; J2405; J2543; J2550; J2704; J3010; J7030; J7050; Q9967

== ENCOUNTER 2020-05-04 15:15 | Inpatient (IN) | payer MEDICARE, BC ==
[~2020-05-04] VITALS: Ht 160 cm; Wt 81.1 kg
[~2020-05-04 15:15] MED LIST changes: +AMOXICILLIN 8751 TAB PO
[2020-05-04 18:27] VITALS: BP 91/50; PULSE 65; TEMP 98.1
--- NOTE | 2020-05-04 20:00 | NUR ---
Report received, assumed care for machinist 2nd shift. Assessment complete. VS stable. Denies pain/nausea/shortness of breath. Family at bedside-upset that surgeon has not seen patient yet. Discussed at length that surgeon is in surgery but will see patient at first available time. Concerned that "she has a bad infection and no antibiotics have been started." Reassured that patient has been seen by hospitalist and IV antibiotics are currently hanging. Sister very argumentative and unable to reason with her. purification supervisor notified and will come to speak with family. Plan of care discussed for this shift to include NPO/antibiotics/IV fluids and calling for questions/concerns. Verbalizes understanding/denies questions/concerns. Call light in reach. Will monitor.
[2020-05-04 20:26] VITALS: BP 105/53; PULSE 82; TEMP 98.6
[2020-05-04 23:45] VITALS: BP 125/54; PULSE 89; TEMP 99.2
[2020-05-05] VITALS (21 sets, daily range): BP systolic 108–171; BP diastolic 55–79; PULSE 89–129; TEMP 98–99.7
--- NOTE | 2020-05-05 00:17 | NUR ---
PT IS NOT WANTING TO WEAR A CPAP. WILL JUST WEAR OXYGEN FOR THE NIGHT. NO DISTRESS IS NOTED AND PATIENT IS RESTING COMFORTABLY
--- NOTE | 2020-05-05 05:41 | NUR ---
MAT Nina notified of critical lab-positive blood culture. No new orders received.
[2020-05-05 06:46] LABS: BASO # 0.1 (0.0-0.2); BASO % 0.2 % (0.0-2.0); EOS # 0.2 (0.0-0.7); GRAN # 17.7 (1.4-6.5); GRAN % 85.9 % (42.2-75.2); LYMPH # 1.1 (1.2-3.4); LYMPH % 5.3 % (20.0-51.0); MEAN CELL VOLUME 94 fl (80.0-100.0); MEAN CORPUSCULAR HGB CONC 32 g/dl (33.0-37.0); MEAN PLATELET VOLUME 9.9 fl (7.4-10.4); MONO # 1.4 (0.1-0.6); MONO % 6.8 % (1.7-9.3); PLATELET COUNT 385 K/mm3 (130-400); RED BLOOD COUNT 3.28 M/mm3 (4.10-5.30); REDCELL DISTRIBUTION WIDTH-CV 13.7 % (11.5-14.5)
[2020-05-05 06:47] LABS: HEMATOCRIT 30.7 % (37.0-47.0); HEMOGLOBIN 9.7 g/dl (12.5-16.0); MEAN CORPUSCULAR HEMOGLOBIN 30 pg (27.0-31.0)
[2020-05-05 06:50] LABS: ALBUMIN 3.1 gm/dL (3.5-5.0); BILIRUBIN,TOTAL 0.7 mg/dL (0.0-1.0); CALCIUM 7.4 mg/dL (8.4-10.2); CREATININE, serum 0.77 (0.52-1.25); POTASSIUM 3.8 mmol/L (3.4-5.0); TOTAL PROTEIN 6.4 gm/dL (6.4-8.2)
--- NOTE | 2020-05-05 06:54 | NUR ---
Called sister Le to update on patient status. No -answer-Left message to return call.
--- NOTE | 2020-05-05 09:11 | NUR ---
Vancomycin started for staph blood cultures per Dr. Bustos. Will load with 1.5gm and maintain with 1gm every 12 hours. Pharmacy will check a trough level in approximately 2 days to ensure trough is within goal range of 15-20.
--- NOTE | 2020-05-05 11:20 | NUR ---
ATTEMPTED TO CONTACT CECE RITTER'S SISTER TO INFORM HER OF PLANNED PROCEEDURE @8904 TODAY. NO ANSWER, LEFT VOICEMAIL.
--- NOTE | 2020-05-05 12:46 | NUR ---
PT TO IR FOR DRAIN PLACEMENT AT THIS TIME.
--- NOTE | 2020-05-05 14:00 | NUR ---
REPORT FROM IR ON PATIENT. DRAIN PLACED. NO DRAINAGE NOTED ON ARRIVAL ON FLOOR. ERNST GARCIA RN REPORTS UNABLE TO PLACE PICC LINE UNTIL BLOOD CX ARE NEGATIVE PER DR. ORTIZ. PURE WICK REPLACED AND IV LINES RESET. WARM BLANKETS PROVIDED PER PT REQUEST.
--- NOTE | 2020-05-05 14:35 | NUR ---
PT HAS NAUSEA AND DRY HEAVES. IV ZOFRAN GIVEN.
--- NOTE | 2020-05-05 14:59 | NUR ---
UNABLE TO GIVE ZOFRAN AT THIS TIME. TOO SOON AFTER LAST DOSE. SPRITE PROVIDED PER PT REQUEST.
[2020-05-05 15:16] LABS: COLLECTION METHOD CATHETER
[2020-05-05 15:39] LABS: PH 6 (5-8); SQUAMOUS EPITHELIAL 0-2 /hpf; URINE APPEARANCE Clear; URINE BACTERIA Rare /hpf; URINE BILIRUBIN Negative (NEGATIVE); URINE BLOOD 1+ (NEGATIVE); URINE COLOR Straw; URINE GLUCOSE Negative (NEGATIVE); URINE KETONE 1+ (NEGATIVE); URINE LEUKOCYTE ESTERASE 1+ (NEGATIVE); URINE NITRATE Negative (NEGATIVE); URINE PROTEIN(semi-quant) Negative (NEGATIVE); URINE UROBILINOGEN Negative (NEGATIVE)
--- NOTE | 2020-05-05 17:35 | NUR ---
PT RESTING IN BED. VSS, IV TO PUMP.
--- NOTE | 2020-05-05 19:30 | NUR ---
PT RESTING IN BED. FLACCID ON LT SIDE D/T OLD STROKE. SEE MAR FOR ANY PAIN MEDS GIVEN THIS SHIFT. VANCOMYCIN AND ZOSYN IV SCHEDULED. CALL LIGHT IN REACH. BED ALARM SET.
[2020-05-06] VITALS (7 sets, daily range): BP systolic 108–124; BP diastolic 51–64; PULSE 82–93; TEMP 97.7–98.7
--- NOTE | 2020-05-06 02:42 | NUR ---
PT RESTING. NO DISTRESS. RT ABD DRAIN HAS GREGORY DRAINAGE IN TUBING ONLY. CALL LIGHT INR EACH. PERIWICK IN PLACE FOR URINARY IN CONT.
--- NOTE | 2020-05-06 06:25 | NUR ---
TYLENOL GIVEN FOR RT MID QUAD ABD PAIN. LEVEL 3. PUREWICK INTACT AND DRAINING WELL. HAS TREMOROUS AFFECT. PT RELATES FEELS ALITTLE BETTER TODAY. TANNISH DRAINAGE IN TUBING AND MINIMAL IN BAG.
--- NOTE | 2020-05-06 07:00 | NUR ---
Sitting up in bed with eyes open. Alert and oriented x4. Minimal pain at this time. Lap sites to abd all approximated, no redness/swelling/discharge at the sites. Right upper abd drain to dependent drainage. Very minimal greenish brown drainage noted in bag and tubing. Patient has oxygen on at 3L/NC but normally does not wear oxygen. Removed oxygen at this time and will reassess oxygen saturations. Patient has pure wick at this time to suction with clear yellow urine noted in cannister. Patient has had a stroke in the past and this has affected her left side. Patient denies additional needs at this time.
[2020-05-06 07:40] LABS: BASO # 0.1 (0.0-0.2); BASO % 0.3 % (0.0-2.0); EOS # 0.2 (0.0-0.7); EOS % 0.9 % (0-4.0); GRAN # 15.2 (1.4-6.5); GRAN % 84.7 % (42.2-75.2); LYMPH # 1.2 (1.2-3.4); LYMPH % 6.7 % (20.0-51.0); MEAN CELL VOLUME 92 fl (80.0-100.0); MEAN CORPUSCULAR HGB CONC 32 g/dl (33.0-37.0); MEAN PLATELET VOLUME 9.7 fl (7.4-10.4); MONO # 1.2 (0.1-0.6); MONO % 6.7 % (1.7-9.3); PLATELET COUNT 413 K/mm3 (130-400); RED BLOOD COUNT 3.34 M/mm3 (4.10-5.30); REDCELL DISTRIBUTION WIDTH-CV 13.6 % (11.5-14.5)
[2020-05-06 07:42] LABS: HEMATOCRIT 30.7 % (37.0-47.0); HEMOGLOBIN 9.8 g/dl (12.5-16.0); MEAN CORPUSCULAR HEMOGLOBIN 29 pg (27.0-31.0)
[2020-05-06 07:54] LABS: ALBUMIN 2.9 gm/dL (3.5-5.0); BILIRUBIN,TOTAL 0.6 mg/dL (0.0-1.0); CALCIUM 7.5 mg/dL (8.4-10.2); CREATININE, serum 0.8 (0.52-1.25); POTASSIUM 3.3 mmol/L (3.4-5.0); TOTAL PROTEIN 6.3 gm/dL (6.4-8.2)
--- NOTE | 2020-05-06 10:38 | NUR ---
Patient provided with bed bath, linens changed. Brandy care performed. Buttocks and brandy area red, barrier cream applied. New purewick applied. Patient repositioned to right side and was encouraged to get off her bottom more due to it being red. Patient verbalizes understanding and denies additional needs at this time.
--- NOTE | 2020-05-06 12:58 | NUR ---
The [facility] and was at post acute rehab at [facility]. Plug Shaper Hand contacted [facility] to inquire about them taking the patient back to continue her post acute rehab at discharge, left message.
--- NOTE | 2020-05-06 13:58 | NUR ---
Parts Finisher met with the patient to complete initial intake. The patient lives at home alone in [place] with Wenceslao [place] 24 hour private duty care. The agency is from [place]. She needs assistance and staff with [facility] assistoswaldo. The patient's PCP is Dr. Henry and patient receives medications from [facility] pharmacy. The patient has advanced directives in the EMR. The patient plans to return to [facility] at discharge. BUBBA contacted the patient's sister, Mimi #[phone] to review the discharge plan, left message. SW faxed updates/referral to [facility].
--- NOTE | 2020-05-06 14:01 | NUR ---
Sitting up in bed watching TV. Denies concerns or needs. Drain to right upper abd with minimal green/brown discharge noted in tubing and bag. Patient denies needs or concerns at this time.
--- NOTE | 2020-05-06 14:17 | NUR ---
First visit from the reconditioning associate. prayed with patient. No other needs right now.
--- NOTE | 2020-05-06 14:52 | NUR ---
Patient sat on edge of bed with PT and now is nauseated. Administer Zofran as prescribed. Patient resting in bed. Denies additional needs at this time.
--- NOTE | 2020-05-06 15:00 | NUR ---
SARAH Carbajal, notified of positive blood culture results.
--- NOTE | 2020-05-06 22:38 | NUR ---
Patient resting in bed. Patient took night medications and only complaint was some discomfort around the drain. Drain has minimal output.
--- NOTE | 2020-05-07 01:33 | NUR ---
Patient refusing to wear CPAP, stating she cannot breathe with it on.
[2020-05-07 04:56] VITALS: BP 126/61; PULSE 90; TEMP 98.4
--- NOTE | 2020-05-07 06:08 | NUR ---
Patient resting in bed. Did not wear CPAP throughout the night but her oxygen was between 91-92%. Patient denied the need for any pain medication, just said there was a little discomfort around the area of the drain.
[2020-05-07 07:56] VITALS: BP 140/69; PULSE 95; TEMP 98.2
[2020-05-07 08:32] LABS: BASO # 0.1 (0.0-0.2); BASO % 0.6 % (0.0-2.0); EOS # 0.2 (0.0-0.7); EOS % 1.8 % (0-4.0); GRAN # 7.4 (1.4-6.5); GRAN % 74.1 % (42.2-75.2); LYMPH # 1.6 (1.2-3.4); LYMPH % 15.9 % (20.0-51.0); MEAN CELL VOLUME 92 fl (80.0-100.0); MEAN CORPUSCULAR HGB CONC 32 g/dl (33.0-37.0); MEAN PLATELET VOLUME 9.7 fl (7.4-10.4); MONO # 0.7 (0.1-0.6); MONO % 7.1 % (1.7-9.3); PLATELET COUNT 425 K/mm3 (130-400); RED BLOOD COUNT 3.31 M/mm3 (4.10-5.30); REDCELL DISTRIBUTION WIDTH-CV 13.8 % (11.5-14.5)
[2020-05-07 08:39] LABS: HEMATOCRIT 30.6 % (37.0-47.0); HEMOGLOBIN 9.9 g/dl (12.5-16.0); MEAN CORPUSCULAR HEMOGLOBIN 30 pg (27.0-31.0)
[2020-05-07 08:51] LABS: BILIRUBIN,TOTAL 0.5 mg/dL (0.0-1.0); CALCIUM 7.8 mg/dL (8.4-10.2); CREATININE, serum 0.75 (0.52-1.25); POTASSIUM 3.2 mmol/L (3.4-5.0); TOTAL PROTEIN 6.4 gm/dL (6.4-8.2)
--- NOTE | 2020-05-07 10:08 | NUR ---
PATIENT SITTING UP IN BED. SARAH CEE IS PRESENT IN THE ROOM. PATIENT REPORTS SOME NAUSEA AND WOULD LIKE SOME ZOFRAN AT THIS TIME. AM MEDICATIONS GIVEN. PATIENT REPORTS ABDOMINAL DISCOMFORT AT THE DRAIN SITE, TYLENOL OFFERED AND REFUSED. SCD'S TO BLE. OLD ABDOMINAL LAP SITES X4 ROSALIE AND HEALING. RIGHT SIDED-DRAIN TO DEPENDENT DRAINAGE WITH SCANT AMOUNT OF BROWN DRAINAGE PRESENT. PURWICK IN PLACE DRAINAGE LARGE AMOUNTS OF PALE YELLOW URINE TO WALL CANISTER. CALL LIGHT WITHIN REACH. PATIENT DENIES ANY OTHER NEEDS AT THIS TIME.
[2020-05-07 11:48] VITALS: BP 135/65; PULSE 90; TEMP 98.4
[2020-05-07 16:04] VITALS: BP 127/68; PULSE 90; TEMP 98
--- NOTE | 2020-05-07 17:04 | NUR ---
PATIENT REPORTING ABDOMINAL PAIN AT THE DRAIN SITE. PATIENT GIVEN PRN TYLENOL AT THIS TIME. SISTER PRESENT AT THE BEDSIDE. CALL LIGHT WITHIN REACH. PATIENT DENIES ANY OTHER NEEDS AT THIS TIME. WILL REPORT OFF TO ONCOMING NURSE.
[2020-05-07 19:28] VITALS: BP 134/64; PULSE 92; TEMP 98.5
[2020-05-08] VITALS (7 sets, daily range): BP systolic 102–155; BP diastolic 36–82; PULSE 63–93; TEMP 97.9–99
--- NOTE | 2020-05-08 09:00 | NUR ---
Patient denies pain. She has not interest in breakfast. Only having Jello & sprite. . Po intake encouraged. Thai patricia.
[2020-05-08 09:09] LABS: BASO # 0.1 (0.0-0.2); BASO % 0.8 % (0.0-2.0); EOS # 0.2 (0.0-0.7); EOS % 1.8 % (0-4.0); GRAN # 6.8 (1.4-6.5); GRAN % 73.3 % (42.2-75.2); HEMOGLOBIN 10.2 g/dl (12.5-16.0); LYMPH # 1.7 (1.2-3.4); LYMPH % 17.8 % (20.0-51.0); MEAN CELL VOLUME 91 fl (80.0-100.0); MEAN CORPUSCULAR HEMOGLOBIN 29 pg (27.0-31.0); MEAN CORPUSCULAR HGB CONC 32 g/dl (33.0-37.0); MEAN PLATELET VOLUME 9.6 fl (7.4-10.4); MONO # 0.5 (0.1-0.6); MONO % 5.8 % (1.7-9.3); PLATELET COUNT 451 K/mm3 (130-400); RED BLOOD COUNT 3.52 M/mm3 (4.10-5.30); REDCELL DISTRIBUTION WIDTH-CV 13.9 % (11.5-14.5)
[2020-05-08 09:19] LABS: HEMATOCRIT 32.1 % (37.0-47.0)
--- NOTE | 2020-05-08 09:45 | NUR ---
at bedside & abcess drain was removed. Patient tolerated well.
[2020-05-08 10:14] LABS: BILIRUBIN,TOTAL 0.4 mg/dL (0.0-1.0); CALCIUM 8.2 mg/dL (8.4-10.2); CREATININE, serum 0.75 (0.52-1.25); POTASSIUM 3.6 mmol/L (3.4-5.0); TOTAL PROTEIN 6.5 gm/dL (6.4-8.2)
--- NOTE | 2020-05-08 11:50 | NUR ---
Patient repostioned in bed for lunch. Requesting chicken noodle soup. Soup ordered from the kitchen. Hospitalist made aware patient not wanting to take efferdecent k+. Tab orders for her K+ replacement. Patient continues to us external gastelum cath. canister changed. After lunch bedbath with be provided
--- NOTE | 2020-05-08 15:00 | NUR ---
Patient given full bed bath. She had incontince of urine and stool. She reports she is unaware of her incontinence ever since she had her strokes. Pericare provided with new exernal cath placed. Barrier cream used. Patient offloaded off her reddended/excoriated coccyx. Patient brushed her teeth. She did better with lunch & tolerated soup & toast. This was reorders for her dinner per her request. Patient also reports pain relieved since her abcess drain was discontinued.
--- NOTE | 2020-05-08 19:38 | NUR ---
Patient remains dry. No incontinence. Patient tolerated a small amount of dinner. He sister visited this eveing. Plan of care reviewed. Kahty to Resume cares
--- NOTE | 2020-05-08 20:00 | NUR ---
Report received, assumed care for night shift manager. Assessment complete. VS stable. A&Ox3. Denies pain/nausea/shortness of breath. Old abdominal lap sites noted-healing. Purewick in place. Plan of care discussed for this shift to include HS meds/pain meds/calling for questions/concerns. Verbalizes understanding/denies questions/concerns. Call light in reach. WIll monitor.
[2020-05-09] VITALS (7 sets, daily range): BP systolic 118–146; BP diastolic 60–90; PULSE 75–91; TEMP 97.6–98.3
--- NOTE | 2020-05-09 01:00 | NUR ---
Resting in bed eyes closed. Purewick in place. IV to right AC flushes without difficulty-Josisyn karmen. Denies needs. Call light in reach. Will monitor.
--- NOTE | 2020-05-09 04:52 | NUR ---
Rested well this shift. VS remained stable. Tolerating PO. Purewick replaced/brandy care complete. at this time. Denies pain/nausea/shortness of breath. Denies c/o at this time. Call light in reach. Will monitor.
[2020-05-09 06:51] LABS: BASO # 0.1 (0.0-0.2); BASO % 0.7 % (0.0-2.0); EOS # 0.2 (0.0-0.7); EOS % 2.3 % (0-4.0); GRAN # 7.4 (1.4-6.5); GRAN % 71.3 % (42.2-75.2); HEMOGLOBIN 10.2 g/dl (12.5-16.0); LYMPH % 19.2 % (20.0-51.0); MEAN CELL VOLUME 94 fl (80.0-100.0); MEAN CORPUSCULAR HEMOGLOBIN 30 pg (27.0-31.0); MEAN CORPUSCULAR HGB CONC 32 g/dl (33.0-37.0); MEAN PLATELET VOLUME 9.6 fl (7.4-10.4); MONO # 0.6 (0.1-0.6); PLATELET COUNT 457 K/mm3 (130-400); RED BLOOD COUNT 3.45 M/mm3 (4.10-5.30)
[2020-05-09 07:01] LABS: BILIRUBIN,TOTAL 0.4 mg/dL (0.0-1.0); CALCIUM 8.8 mg/dL (8.4-10.2); CREATININE, serum 0.81 (0.52-1.25); HEMATOCRIT 32.3 % (37.0-47.0); TOTAL PROTEIN 6.5 gm/dL (6.4-8.2)
--- NOTE | 2020-05-09 08:16 | NUR ---
Sitting up in bed watching TV. Alert and oriented x4. Denies pain. Patient says that she was able to eat a pancake but did not want any of the sausage. Purewick in place draining clear yellow urine. Lucia area excoriated, bottom red. Explain to the patient that we will need to keep her turned off her bottom. Abd lap sites with all edges well approximated, no redness/drainage/swelling noted. Drain site covered with gauze. Patient denies needs or any additional concerns at this time.
--- NOTE | 2020-05-09 11:26 | NUR ---
Feed Handler attended clinical rounds with the team. The patient is to tentatively discharge back to [facility] on 05/10. BUBBA contacted the patient's sister, Mimi and she reports Parag's son will provide transportation. Bettie with [facility] reports they can accept the patient back to continue her post acute rehab.
--- NOTE | 2020-05-09 11:32 | NUR ---
Orders to collect UA. Spoke with SARAH Birmingham, and she says that we can straight cath patient for collection as she is incontinent. Cleansed brandy area with three wipes. Following procedure performed using sterile techique. Vaginal area cleaned with four betadine swabs. 14fr catheter inserted. Received return of clear yellow urine which is collected for the specimen. Catheter removed at this time. Brandy area cleaned to remove excess betadine. Reinserted purewick. Applied barrier cream to brandy area as well. Assisted patient to comfortable position. Denies additional needs. Specimen sent to the lab.
[2020-05-09 11:33] LABS: COLLECTION METHOD CATHETER
[2020-05-09 11:59] LABS: MUCOUS Present /lpf; PH 6 (5-8); SQUAMOUS EPITHELIAL 0-2 /hpf; URINE APPEARANCE Clear; URINE BACTERIA Rare /hpf; URINE BILIRUBIN Negative (NEGATIVE); URINE BLOOD Negative (NEGATIVE); URINE COLOR Straw; URINE GLUCOSE Negative (NEGATIVE); URINE KETONE Negative (NEGATIVE); URINE LEUKOCYTE ESTERASE Negative (NEGATIVE); URINE NITRATE Negative (NEGATIVE); URINE PROTEIN(semi-quant) Negative (NEGATIVE); URINE RBC 0-2 /hpf; URINE UROBILINOGEN Negative (NEGATIVE)
--- NOTE | 2020-05-09 16:33 | NUR ---
Patient sitting up in recliner. Sister is in room with the patient. Patient denies pain or concerns. Patient's sister was updated that the UA came back normal. Sister explains that they will not be able to pickle water pump operator the patient until tomorrow some time in the afternoon, she will have to get back with us regarding a time. Also she would like for her sister to get a shower in the morning as well. Explained that I would pass this information along. Patient denies additional needs at this time.
--- NOTE | 2020-05-09 18:15 | NUR ---
Patient assisted from recliner to bed with assist of two and use of walker. Gait slow and steady. Pericare provided, barrier cream applied, new pure wick applied as well. Positioned patient on left side. Denies additional needs.
[2020-05-10 04:28] VITALS: BP 138/76; PULSE 81; TEMP 97.9
--- NOTE | 2020-05-10 05:50 | NUR ---
PT HAD A QUIET NIGHT. INT INTACT IN L AC. TAKES PILLS WITH NO DIFFICULTY. NO C/O. CALL LIGHT IN REACH.
[2020-05-10 07:04] LABS: BASO # 0.1 (0.0-0.2); BASO % 0.7 % (0.0-2.0); EOS # 0.5 (0.0-0.7); EOS % 4.4 % (0-4.0); GRAN # 8.1 (1.4-6.5); GRAN % 66.6 % (42.2-75.2); HEMATOCRIT 33.1 % (37.0-47.0); HEMOGLOBIN 10.5 g/dl (12.5-16.0); LYMPH # 2.7 (1.2-3.4); LYMPH % 22.1 % (20.0-51.0); MEAN CELL VOLUME 93 fl (80.0-100.0); MEAN CORPUSCULAR HEMOGLOBIN 29 pg (27.0-31.0); MEAN CORPUSCULAR HGB CONC 32 g/dl (33.0-37.0); MEAN PLATELET VOLUME 9.3 fl (7.4-10.4); MONO # 0.7 (0.1-0.6); MONO % 5.8 % (1.7-9.3); PLATELET COUNT 481 K/mm3 (130-400); RED BLOOD COUNT 3.57 M/mm3 (4.10-5.30); REDCELL DISTRIBUTION WIDTH-CV 13.8 % (11.5-14.5)
[2020-05-10 07:20] LABS: CALCIUM 9.1 mg/dL (8.4-10.2); CREATININE, serum 0.75 (0.52-1.25); POTASSIUM 4.2 mmol/L (3.4-5.0)
[2020-05-10 08:00] VITALS: BP 131/81; PULSE 106; TEMP 98.5
--- NOTE | 2020-05-10 09:11 | NUR ---
Marine Gear Keeper attended clinical rounds with the team. The patient is to discharge today. The patient's sister, Mimi contacted this Marine Gear Keeper. She reports the earliest they can parts picker the patient is 1530. The team was in agreeance. BUBBA contacted Bettie with [facility] she was in agreeance. BUBBA provided peer to peer information to the Hospitalist and the patient's nurse.
--- NOTE | 2020-05-10 09:14 | NUR ---
Patient resting in bed, call light in reach and legs elevated. Patient denies pain at this time. Patient has requested a shower this morning, will try to arrange this. Will continue to monitor.
[2020-05-10] MEDS ORDERED: TYLENOL 325MG325 MG PO (09:20)
[2020-05-10] MEDS ORDERED: PROBIOTIC ACID1 EAC3 PO (09:21)
[2020-05-10] MEDS ORDERED: DUO-KAPS1 CAP PO (09:22)
[2020-05-10] MEDS ORDERED: OMNICEF 300MG300 MG PO (09:24)
--- NOTE | 2020-05-10 11:09 | NUR ---
Patient received a shower when working with OT this morning. Patient was a max assist with 3 people into the shower. This nurse observed some redness and irritation to patient's left underarm, see new order for Desenex powder per Dr. Segovia. Lucia area was very red and yeasty, see new order for Monistat per Dr. Bustos. Patient was a two max assist with transferring from bed using walker and gait belt to patient's recliner. Patient refused her nutrition drink this morning. Patient denied any questions at this time.
[2020-05-10] MEDS ORDERED: DESENEX TP (13:03)
[2020-05-10 14:31] VITALS: BP 131/81; PULSE 106; TEMP 98.5
--- NOTE | 2020-05-10 15:44 | NUR ---
Patient Health Summary, Discharge Summary, and Home Meds printed and reviewed with MAGDA Glez at the [facility] unit. Stressed improtance of setting up follow up appointments. Belongings gathered by patient's sister including phone, phone retail coverage merchandiser lead, tennis shoes, purple left leg brace, glasses, her walker, hair brush and toiletries. Patient transported via [place] and seatbelted for ride to [facility] via [facility] transportation. Patient and sister denied any questions.
== END 2020-05-10 15:45 | disposition swing bed (61) | DRG 862 ==
LOC: JCC 15:15
PROVIDERS: Physician Assistant; Student in an Organized Health Care Education/Training Program; ADMIT Hospitalist
DX: T81.44XA Sepsis following a procedure, initial encounter (principal); A41.9 Sepsis, unspecified organism; J96.01 Acute respiratory failure with hypoxia; R65.20 Severe sepsis without septic shock; K81.0 Acute cholecystitis; J98.11 Atelectasis; E87.6 Hypokalemia; F32.9 Major depressive disorder, single episode, unspecified; M19.90 Unspecified osteoarthritis, unspecified site; Z20.828 Contact with and (suspected) exposure to other viral communicable diseases; G62.9 Polyneuropathy, unspecified; G47.33 Obstructive sleep apnea (adult) (pediatric); L30.4 Erythema intertrigo; B37.3 Candidiasis of vulva and vagina; Z86.73 Personal history of transient ischemic attack (TIA), and cerebral infarction without residual deficits
CPT/HCPCS: 99223-AI; 99232-AI; 99239; A9284; C1729; J1650; J2250; J2405; J2543; J3010; J3370; J7030; J7050

== ENCOUNTER 2020-05-20 15:13 | Observation (INO) | payer MEDICARE, BC ==
[~2020-05-20] VITALS: Ht 160 cm; Wt 81.1 kg
[~2020-05-20 15:13] MED LIST changes: +DESENEX TP; +DUO-KAPS1 CAP PO; +OMNICEF 300MG300 MG PO; +TYLENOL 325MG325 MG PO
[2020-05-20] MEDS ORDERED: LOVENOX 4040 MG/0.4 SQ (17:51)
[2020-05-20] MEDS ORDERED: MONODOX100 PO (17:52)
[2020-05-20] MEDS ORDERED: ZESTRIL 20MG TA20 MG PO (18:13)
[2020-05-20] MEDS ORDERED: PROBIOTIC ACID1 EAC3 PO (18:20)
[2020-05-20 18:33] VITALS: BP 150/67; PULSE 82; TEMP 99.3
[2020-05-20 18:34] VITALS: BP 150/67; PULSE 82; TEMP 99.3
--- NOTE | 2020-05-20 19:00 | NUR ---
Patient up to room by EMS, alert and oriented x 3. Assessment complete. Patient oriented to room. INT to right hand noted. Dr. Lopez in to see patient. Denies pain at this time. Reported off to material handler 2nd shift.
[2020-05-20 19:52] VITALS: BP 135/65; PULSE 91; TEMP 99.6
--- NOTE | 2020-05-20 20:36 | NUR ---
Pt states she wears a CPAP at home but did not bring her own and does not want to try a hospital CPAP. Pt on RA, 97% with no distress at this time.
[2020-05-21] VITALS (7 sets, daily range): BP systolic 123–155; BP diastolic 61–73; PULSE 70–84; TEMP 98.1–99.1
[2020-05-21 05:54] LABS: BASO # 0.1 (0.0-0.2); EOS # 0.4 (0.0-0.7); EOS % 3.7 % (0-4.0); GRAN % 72.1 % (42.2-75.2); LYMPH # 1.8 (1.2-3.4); LYMPH % 18.8 % (20.0-51.0); MEAN CELL VOLUME 95 fl (80.0-100.0); MEAN CORPUSCULAR HGB CONC 31 g/dl (33.0-37.0); MEAN PLATELET VOLUME 9.8 fl (7.4-10.4); MONO # 0.4 (0.1-0.6); MONO % 4.1 % (1.7-9.3); PLATELET COUNT 409 K/mm3 (130-400); RED BLOOD COUNT 3.31 M/mm3 (4.10-5.30); REDCELL DISTRIBUTION WIDTH-CV 14.9 % (11.5-14.5)
[2020-05-21 06:05] LABS: HEMATOCRIT 31.3 % (37.0-47.0); HEMOGLOBIN 9.6 g/dl (12.5-16.0); MEAN CORPUSCULAR HEMOGLOBIN 29 pg (27.0-31.0)
[2020-05-21 06:06] LABS: BILIRUBIN,TOTAL 0.6 mg/dL (0.0-1.0); C-REACTIVE PROTEIN 3.8 mg/dL (0.0-0.9); CALCIUM 8.4 mg/dL (8.4-10.2); CREATININE, serum 0.93 (0.52-1.25); MAGNESIUM 1.5 mg/dL (1.6-2.3)
[2020-05-21 06:10] LABS: PRE ALBUMIN 11.2 mg/dL (17.6-36.0)
--- NOTE | 2020-05-21 11:17 | NUR ---
Professional Development Manager was able to stand outside of door and pray for patient.
--- NOTE | 2020-05-21 13:35 | NUR ---
Plans to use SNF or [place] [facility]. SW met with patient about DC plan. Patient reports that [place] but has a sister Mimi asnd Brother Minh who assist with care when and if needed. Patient reports that she a friend that is her DPOA Cesia . Patient reports that use a wheelchair and a walker and often has weakness in her lefts. Patient reports kaylan she had [facility] but is transistioning to a [facility] in [place]. Patient reports the use of CPAP at night. Friend will Transport home. DR Yayo Henry is PCP and RX obtained from [facility] without difficulty. Will continue to follow for care supports.
--- NOTE | 2020-05-21 15:15 | NUR ---
X-RAY HERE FOR FILMS, IV BECAME DISLODGED.
--- NOTE | 2020-05-21 19:03 | NUR ---
updated Dr. Leon on status of central line. He said to hold presure and reinforce dressing as needed.
--- NOTE | 2020-05-21 19:30 | NUR ---
Pt. laying in bed at this time. Pt. is A&OX3, Shift assessment complete. TLC to rt. IJ was bleeding, Dressing removed and large blood clot removed from under dressing. Pressure was applied to the line site for approx. 30 before bleeding stopped. Sterile dressing change completed, abx. disc applied to line. Pt. tolerated well. Pt.'s hair washed by PROPERTY STAFF ACCOUNTANT. and bedding changed. Pt. denies further needs, call light within reach.
[2020-05-22 03:38] VITALS: BP 156/78; PULSE 74; TEMP 98.7
[2020-05-22 05:38] LABS: BASO # 0.1 (0.0-0.2); BASO % 1.2 % (0.0-2.0); EOS # 0.6 (0.0-0.7); GRAN # 5.3 (1.4-6.5); GRAN % 65.3 % (42.2-75.2); LYMPH # 1.5 (1.2-3.4); LYMPH % 18.5 % (20.0-51.0); MEAN CELL VOLUME 94 fl (80.0-100.0); MEAN CORPUSCULAR HGB CONC 31 g/dl (33.0-37.0); MEAN PLATELET VOLUME 9.5 fl (7.4-10.4); MONO # 0.6 (0.1-0.6); MONO % 7.8 % (1.7-9.3); PLATELET COUNT 369 K/mm3 (130-400); RED BLOOD COUNT 3.28 M/mm3 (4.10-5.30); REDCELL DISTRIBUTION WIDTH-CV 14.7 % (11.5-14.5)
[2020-05-22 05:39] LABS: HEMATOCRIT 30.7 % (37.0-47.0); HEMOGLOBIN 9.6 g/dl (12.5-16.0); MEAN CORPUSCULAR HEMOGLOBIN 29 pg (27.0-31.0)
[2020-05-22 05:48] LABS: CALCIUM 7.9 mg/dL (8.4-10.2); CREATININE, serum 0.79 (0.52-1.25); MAGNESIUM 2.7 mg/dL (1.6-2.3); POTASSIUM 3.9 mmol/L (3.4-5.0)
[2020-05-22 07:32] VITALS: BP 155/80; PULSE 73; TEMP 99
[2020-05-22 11:04] VITALS: BP 153/76; PULSE 71; TEMP 98.2
[2020-05-22 15:33] VITALS: BP 143/68; PULSE 75; TEMP 98.9
--- NOTE | 2020-05-22 17:39 | NUR ---
Patient sitting up eating dinner. Appetite improved, she has done well with meals. denies nausea. Patient external cath has been changed x2. pericare provided. coccyx reddened. She has been repositioned in the bed. heel floated. some reddness noted to left heel. Right Ij with medication per orders. Will report off to night nurse.
[2020-05-22 19:45] VITALS: BP 151/65; PULSE 76; TEMP 98.6
--- NOTE | 2020-05-22 20:40 | NUR ---
Pt. sitting up in bed. Pt. is A&OX3, assessment complete. TLC to rt. IJ patent. Pt. denies pain or other needs, call light within reach.
[2020-05-22 23:25] VITALS: BP 150/82; PULSE 76; TEMP 98.6
[2020-05-23 03:50] VITALS: BP 149/62; BP 185/88; PULSE 67; PULSE 70; TEMP 97.5; TEMP 98
[2020-05-23 04:05] VITALS: BP 187/104
[2020-05-23 05:55] VITALS: BP 168/83
[2020-05-23 07:11] LABS: BASO # 0.1 (0.0-0.2); BASO % 1.1 % (0.0-2.0); EOS # 0.7 (0.0-0.7); EOS % 7.3 % (0-4.0); GRAN % 61.7 % (42.2-75.2); HEMOGLOBIN 10.4 g/dl (12.5-16.0); LYMPH # 2.2 (1.2-3.4); LYMPH % 22.8 % (20.0-51.0); MEAN CELL VOLUME 93 fl (80.0-100.0); MEAN CORPUSCULAR HEMOGLOBIN 29 pg (27.0-31.0); MEAN CORPUSCULAR HGB CONC 31 g/dl (33.0-37.0); MEAN PLATELET VOLUME 9.9 fl (7.4-10.4); MONO # 0.7 (0.1-0.6); MONO % 6.9 % (1.7-9.3); PLATELET COUNT 426 K/mm3 (130-400); REDCELL DISTRIBUTION WIDTH-CV 14.6 % (11.5-14.5)
[2020-05-23 07:13] LABS: HEMATOCRIT 33.6 % (37.0-47.0)
[2020-05-23 07:27] LABS: ALBUMIN 3.3 gm/dL (3.5-5.0); BILIRUBIN,TOTAL 0.4 mg/dL (0.0-1.0); CALCIUM 8.4 mg/dL (8.4-10.2); CREATININE, serum 0.77 (0.52-1.25); POTASSIUM 3.8 mmol/L (3.4-5.0); TOTAL PROTEIN 6.5 gm/dL (6.4-8.2)
[2020-05-23 08:04] VITALS: BP 175/91; PULSE 72; TEMP 98.1
--- NOTE | 2020-05-23 10:26 | NUR ---
First visit from the cmm programmer. No needs right now.
[2020-05-23] MEDS ORDERED: ZOSYN 3 GM-0.371 PD1 IV (11:14)
[2020-05-23] MEDS ORDERED: DIFLUCAN 2200 MG/100 IV (11:15)
[2020-05-23] MEDS ORDERED: APRESOLINE 10MG10 MG PO (11:16)
[2020-05-23] MEDS ORDERED: PRINIVIL40 MG PO (11:20)
[2020-05-23] MEDS ORDERED: CELEXA 20MG20 MG/TAB PO (11:21)
[2020-05-23 12:17] VITALS: BP 164/94; PULSE 72; TEMP 98.2
[2020-05-23 13:38] VITALS: BP 164/94; PULSE 72; TEMP 98.2
--- NOTE | 2020-05-23 14:06 | NUR ---
The patient was transferred here from [facility]. The hospitalist notified BUBBA that the patient is ready to d/c back to [facility] today. BUBBA notified Bettie at [facility]. The accepting provider is SARAH Donato at [facility]. BUBBA informed the hospitalist and provided him with Yandy's phone number for the [id number]. The [id number] was done and Bettie confirmed that they are able to take the patient today. BUBBA contacted and updated the patient's DPOA-HC, Cesia. Cesia reports that her son could probably provide transportation, but that the patient's sister (Mimi) wants to speak to BUBBA first. BUBBA then contacted the patient's sister, Mimi. Mimi reports that she thinks the patient is being discharged too soon and asked that we keep the patient until Saturday or . She states that she does not think she can get transportation arranged for the patient. BUBBA informed her of how this BUBBA spoke to Cesia and Cesia said her son could do it. Mimi reports that this is not so. BUBBA updated the clinical team. The patient's PA, Eneida, and BUBBA spoke to Mimi over the phone. Eneida provided a clinical update and informed her of how the patient is stable and ready for discharge. Mimi was then agreeable to come and transport the patient to [facility]. BUBBA updated Bettie at [facility]. Bettie asked for a rapid COVID test. A rapid test was performed. BUBBA updated the patient. The patient is agreeable to going back to [facility]. BUBBA then received another phone call from the patient's sister, Mimi. Mimi reports that the patient is getting a PIC line placed today, so should stay longer. The patient's RN spoke to Mimi about this. Mimi wanted to confirm that [facility] can address the PIC line, if something were to go wrong. BUBBA contacted Bettie at [facility] and she confirms that they address the PIC, if something were to go wrong. BUBBA updated the clinical team. The hospitalist would like for the patient to transfer, via ambulance. BUBBA met with the patient to update and presented and read the EMS Transfer Consent Form outloud to the patient. The patient verbalized understanding and gave SW approval to sign the form on her behalf. SW updated the patient's sister, Cesia. The patient is to discharge today, 05/23, back to [facility]. Transportation was scheduled at 1400, via [facility]. BUBBA informed the patient, her RN, and the patient's sister over the phone. They were all agreeable to the time. No additional needs at this time.
--- NOTE | 2020-05-23 14:25 | NUR ---
Patient ready for discharge. Social work assisting with discussing cares with her Patient sister. Answering questions and concerns. Patient central line dc. AIV inserted Picc line, patient tolerated well. Patient provided with pericare, incontience cares given. She has done well with meals, tolerated without nausea. Denies pain. Report called to [facility], all questions answered.
== END 2020-05-23 14:25 ==
LOC: SURG 15:13
PROVIDERS: Physician Assistant; ADMIT Internal Medicine
DX: R11.2 Nausea with vomiting, unspecified (principal); D72.829 Elevated white blood cell count, unspecified; J90 Pleural effusion, not elsewhere classified; I87.2 Venous insufficiency (chronic) (peripheral); R19.01 Right upper quadrant abdominal swelling, mass and lump; I10 Essential (primary) hypertension; E78.5 Hyperlipidemia, unspecified; G72.81 Critical illness myopathy; I69.951 Hemiplegia and hemiparesis following unspecified cerebrovascular disease affecting right dominant side; F32.9 Major depressive disorder, single episode, unspecified; G89.29 Other chronic pain; G62.9 Polyneuropathy, unspecified; G47.33 Obstructive sleep apnea (adult) (pediatric); E66.9 Obesity, unspecified; L30.4 Erythema intertrigo; K21.9 Gastro-esophageal reflux disease without esophagitis; M19.90 Unspecified osteoarthritis, unspecified site; M81.0 Age-related osteoporosis without current pathological fracture; Z88.1 Allergy status to other antibiotic agents; Z88.2 Allergy status to sulfonamides; Z79.899 Other long term (current) drug therapy; Z79.02 Long term (current) use of antithrombotics/antiplatelets; Z79.82 Long term (current) use of aspirin; Z79.01 Long term (current) use of anticoagulants
CPT/HCPCS: 99232-AI; A9284; C1751; G0378; J1450; J1650; J2543; J3475; J7030

== ENCOUNTER 2021-05-02 15:14 | Outpatient (CLI) | payer MEDICARE, BC ==
[~2021-05-02] VITALS: Ht 160 cm; Wt 83.1 kg
[~2021-05-02 15:14] MED LIST changes: +CELEXA 20MG20 MG/TAB PO; +DIFLUCAN 2200 MG/100 IV; +MONODOX100 PO; +ZOSYN 3 GM-0.371 PD1 IV
[2021-05-02 15:45] VITALS: BP 109/72; PULSE 69; TEMP 98.2
[2021-05-02] MEDS ORDERED: CALTRATE-600 W600 MG PO (16:13)
[2021-05-02] MEDS ORDERED: CRANBERRY500 M3 PO (16:14)
[2021-05-02] MEDS ORDERED: LOZOL1.25 MG PO (16:16)
[2021-05-02] MEDS ORDERED: MACRODANTIN100 PO (16:18)
[2021-05-02] MEDS ORDERED: NORVASC 10MG10 MG PO (16:19)
[2021-05-02] MEDS ORDERED: PLAVIX 75MG TAB75 MG PO (16:19)
[2021-05-02] MEDS ORDERED: VITAMIN C500 MG PO (16:21)
[2021-05-02] MEDS ORDERED: PHARMASSURE ZIN50 MG PO (16:21)
[2021-05-02] MEDS ORDERED: COLACE 100100 MG/CAP PO (16:22)
[2021-05-02] MEDS ORDERED: BENADRYL50 MG PO (16:23)
== END 2021-05-02 16:26 ==
LOC: EUO 15:14
DX: M81.0 Age-related osteoporosis without current pathological fracture (principal)
CPT/HCPCS: J0897

== ENCOUNTER → 2021-11-08 | Outpatient (CLI) | payer MEDICARE, BC ==
[~2021-11-08] VITALS: Ht 160 cm; Wt 83.1 kg
[~2021-11-08] MED LIST changes: +BENADRYL50 MG PO; +CALTRATE-600 W600 MG PO; +CRANBERRY500 M3 PO; +LOZOL1.25 MG PO; +MACRODANTIN100 PO; +PHARMASSURE ZIN50 MG PO; +VITAMIN C500 MG PO
[2021-11-08 15:16] VITALS: BP 108/70; PULSE 68; TEMP 98.5
== END ==
LOC: EUO 14:54
DX: M81.0 Age-related osteoporosis without current pathological fracture (principal)
CPT/HCPCS: J0897